=== PATIENT | female | born 1950 | race Caucasian/White ===

== ENCOUNTER → 2017-07-20 09:11 | Outpatient (CLI) | payer BC, SELFPAY ==
[2017-07-20 10:36] LABS: Alanine Aminotransferase 30 IU/L (9-52); Albumin 4.3 g/dL (3.5-5.0); Albumin Globulin Ratio 1.3 (1.0-2.8); Alkaline Phosphatase 48 U/L (38-126); Aspartate Aminotransferase 33 IU/L (14-36); Bilirubin Total 0.4 mg/dL (0.2-1.3); Calcium 9.5 mg/dL (8.4-10.2); Cholesterol 222 mg/dL (140-199); Estimated Glomerular Filt Rate > 60.0 mL/min (>60); Globulin 3.2 g/dL (1.7-4.1); Glucose 101 mg/dL (80-110); HDL Cholesterol 60 mg/dL (40-60); HEMOLYSIS < 15 (0-50); LDL Cholesterol Calculated 148 mg/dL (<100); Sodium 140 mmol/L (137-145); Total Protein 7.5 g/dL (6.3-8.2); Triglycerides 71 mg/dL (35-150)
[2017-07-20 11:30] LABS: Thyroid Stimulating Hormone 1.35 uIU/mL (0.47-4.68)
== END ==
PROVIDERS: PCP Physician Assistant; Visit Provider Physician Assistant
DX: E03.9 Hypothyroidism, unspecified (principal); E78.5 Hyperlipidemia, unspecified; I10 Essential (primary) hypertension
CPT/HCPCS: 36415; 80053; 80061; 84443

== ENCOUNTER → 2018-01-23 09:23 | Outpatient (CLI) | payer BC, SELFPAY ==
[2018-01-23 10:17] LABS: BUN Creatinine Ratio 22.5 (6-22); Blood Urea Nitrogen 18 mg/dL (7-17); Calcium 9.6 mg/dL (8.4-10.2); Carbon Dioxide 31 mmol/L (22-32); Chloride 100 mmol/L (98-107); Cholesterol 193 mg/dL (140-199); Estimated Glomerular Filt Rate > 60.0 mL/min (>60); Glucose 101 mg/dL (80-110); HDL Cholesterol 63 mg/dL (40-60); HEMOLYSIS < 15 (0-50); LDL Cholesterol Calculated 111 mg/dL (<100); Potassium 3.8 mmol/L (3.4-5.1); Sodium 143 mmol/L (137-145); Triglycerides 93 mg/dL (35-150)
== END ==
PROVIDERS: Family Provider Physician Assistant; PCP Physician Assistant; Visit Provider Physician Assistant
DX: E03.9 Hypothyroidism, unspecified (principal); E78.5 Hyperlipidemia, unspecified; I10 Essential (primary) hypertension
CPT/HCPCS: 36415; 80048; 80061

== ENCOUNTER → 2018-04-05 08:42 | Outpatient (CLI) | payer BC, SELFPAY ==
--- NOTE | 2018-04-05 | DI.MG.S_ITS ---
BILATERAL DIGITAL SCREENING MAMMOGRAM 3D/2D WITH CAD WITH AUGMENTATION: 04/05/2018 CLINICAL: Routine screening. Comparison is made to exams dated: 10/26/2015 mammogram, 10/14/2014 mammogram, and 05/10/2013 mammogram - [facility]. There are scattered fibroglandular elements in both breasts. Current study was also evaluated with a Computer Aided Detection (CAD) system. Bilateral subglandular silicone implants are present. There is 0.4 cm oval equal density asymmetry in the right breast central to the nipple posterior depth. No other significant masses, calcifications, or other findings are seen in either breast. IMPRESSION: INCOMPLETE: NEEDS ADDITIONAL IMAGING EVALUATION The 0.4 cm oval equal density asymmetry in the right breast is indeterminate. Additional views with possible ultrasound are recommended. This exam was interpreted at Station ID: [id number]. NOTE: For mammograms, a report in lay terms will be sent to the patient. Approximately 15% of breast malignancies will not be visualized mammographically. In the management of a palpable breast mass, a negative mammogram must not discourage biopsy of a clinically suspicious lesion. Electronically Signed By: Roque Cordero M.D. aty/:04/05/2018 09:57:58 letter sent: Additional Imaging Needed ACR BI-RADS Category 0: Incomplete 3340F
== END ==
PROVIDERS: Family Provider Physician Assistant; PCP Physician Assistant; Visit Provider Physician Assistant
DX: Z12.31 Encounter for screening mammogram for malignant neoplasm of breast (principal)
CPT/HCPCS: 77063; 77067

== ENCOUNTER → 2018-04-18 08:05 | Outpatient (CLI) | payer BC, SELFPAY ==
--- NOTE | 2018-04-18 08:06 | DI.MG.S_ITS ---
UNILATERAL RIGHT DIGITAL DIAGNOSTIC MAMMOGRAM 3D/2D WITH ADDITIONAL VIEWS: 04/18/2018 CLINICAL: Additional evaluation requested from prior study. Comparison is made to exams dated: 04/05/2018 mammogram - [facility], 10/26/2015 mammogram, and 10/14/2014 mammogram - [facility]. There are scattered fibroglandular elements in right breast. There is 0.3 cm oval low density focal asymmetry with an indistinct and circumscribed margin in the right breast at 12 o'clock middle depth. No other significant masses or calcifications are seen in the breast. IMPRESSION: INCOMPLETE: NEEDS ADDITIONAL IMAGING EVALUATION The 0.3 cm oval low density focal asymmetry in the right breast is indeterminate. An ultrasound is recommended. This exam was interpreted at Station ID: [id number]. NOTE: For mammograms, a report in lay terms will be sent to the patient. Approximately 15% of breast malignancies will not be visualized mammographically. In the management of a palpable breast mass, a negative mammogram must not discourage biopsy of a clinically suspicious lesion. Electronically Signed By: Samuel agarwal/mikki:04/18/2018 08:36:33 letter sent: Need Ultrasound ACR BI-RADS Category 0: Incomplete 3340F
--- NOTE | 2018-04-18 08:06 | DI.US.S_ITS ---
LIMITED ULTRASOUND OF RIGHT BREAST: 04/18/2018 CLINICAL: Patient returns today to evaluate a density in the right breast. Comparison is made to exams dated: 04/18/2018 mammogram, 04/05/2018 mammogram - [facility], 10/26/2015 mammogram, 10/14/2014 mammogram, 05/10/2013 mammogram, and 03/30/2012 mammogram - [facility]. Real-time ultrasound of the right breast 12-1 o'clock region was performed on the area of interest. At the 12:30 position 2 cm from the nipple, there are 2 adjacent round cysts. This includes a small hypoechoic cyst measuring 0.2 x 0.2 x 0.2 cm with internal echoes and posterior acoustic enhancement. There is an adjacent anechoic cyst measuring 0.3 x 0.3 x 0.3 cm. No internal vascularity is demonstrated within the cyst on Doppler interrogation. The findings likely correlate with mammography findings. IMPRESSION: PROBABLY BENIGN The small round cyst in the right breast is consistent with complicated cyst and is probably benign. A follow-up ultrasound in 6 months is recommended. A follow-up ultrasound in 6 months is recommended to demonstrate stability. This exam was interpreted at Station ID: [id number]. Electronically Signed By: Samuel agarwal/:04/20/2018 16:51:36 letter sent: Followup Recommended Ultrasound BI-RADS: 3 Probably benign
== END ==
PROVIDERS: Family Provider Physician Assistant; PCP Physician Assistant; Visit Provider Physician Assistant
DX: R92.8 Other abnormal and inconclusive findings on diagnostic imaging of breast (principal)
CPT/HCPCS: 76642; 77065; G0279

== ENCOUNTER → 2018-09-20 09:49 | Outpatient (CLI) | payer BC, SELFPAY ==
[2018-09-20 11:50] LABS: Alanine Aminotransferase 24 IU/L (9-52); Albumin 4.3 g/dL (3.5-5.0); Albumin Globulin Ratio 1.5 (1.0-2.8); Alkaline Phosphatase 48 U/L (38-126); Aspartate Aminotransferase 31 IU/L (14-36); BUN Creatinine Ratio 21.3 (6-22); Bilirubin Total 0.3 mg/dL (0.2-1.3); Blood Urea Nitrogen 17 mg/dL (7-17); Calcium 9.8 mg/dL (8.4-10.2); Carbon Dioxide 30 mmol/L (22-32); Chloride 101 mmol/L (98-107); Cholesterol 197 mg/dL (140-199); Estimated Glomerular Filt Rate > 60.0 mL/min (>60); Globulin 2.9 g/dL (1.7-4.1); Glucose 104 mg/dL (80-110); HDL Cholesterol 62 mg/dL (40-60); HEMOLYSIS < 15 (0-50); LDL Cholesterol Calculated 111 mg/dL (<100); Potassium 4.6 mmol/L (3.4-5.1); Sodium 137 mmol/L (137-145); Total Protein 7.2 g/dL (6.3-8.2); Triglycerides 121 mg/dL (35-150)
[2018-09-20 11:56] LABS: Creatinine Urine Random 81.3 mg/dL; Microalbumi Creatinin Ratio Ur 24.6 ug/mg CR (<30)
[2018-09-20 12:16] LABS: Thyroid Stimulating Hormone 0.88 uIU/mL (0.47-4.68)
== END ==
PROVIDERS: PCP Physician Assistant; Visit Provider Physician Assistant
DX: E03.9 Hypothyroidism, unspecified (principal); E78.5 Hyperlipidemia, unspecified; I10 Essential (primary) hypertension
CPT/HCPCS: 36415; 80053; 80061; 82043; 82570; 84443

== ENCOUNTER → 2018-10-04 09:00 | Outpatient (CLI) | payer BC, SELFPAY ==
--- NOTE | 2018-10-04 09:01 | DI.US.S_ITS ---
LIMITED ULTRASOUND OF RIGHT BREAST: 10/04/2018 CLINICAL: Patient returns for a 6 month follow up of the right breast. Comparison is made to exams dated: 04/18/2018 ultrasound, 04/18/2018 mammogram, 04/05/2018 mammogram - [facility], 10/26/2015 mammogram, and 10/14/2014 mammogram - [facility]. Color flow ultrasound of the right breast 12-1 o'clock region was performed. Gerardo scale images of the real-time examination were reviewed. At 12:30 position 2 cm from nipple, there are 2 adjacent round hypoechoic cysts with internal echos measuring 4 x 3 x 4 mm and 2 x 2 x 2 mm. These correlate with mammography and ultrasound findings. Color flow imaging demonstrates that there is no vascularity present. IMPRESSION: PROBABLY BENIGN Stable round cysts in the right breast are most consistent with a complicated cyst and are probably benign. A follow-up ultrasound in 6 months is recommended at the sametime as screen mammography. A follow-up ultrasound in 6 months is recommended to demonstrate long-term stability. This exam was interpreted at Station ID: [id number]. Electronically Signed By: Brannon Novoa M.D. slc/:10/04/2018 10:07:24 letter sent: Followup Recommended Ultrasound BI-RADS: 3 Probably benign
== END ==
PROVIDERS: PCP Physician Assistant; Visit Provider Physician Assistant
DX: R92.8 Other abnormal and inconclusive findings on diagnostic imaging of breast (principal); N60.01 Solitary cyst of right breast
CPT/HCPCS: 76642

== ENCOUNTER → 2019-04-16 09:08 | Outpatient (CLI) | payer BC, SELFPAY ==
[2019-04-16 10:19] LABS: BUN Creatinine Ratio 22.2 (6-22); Blood Urea Nitrogen 20 mg/dL (7-17); Calcium 9.4 mg/dL (8.4-10.2); Carbon Dioxide 29 mmol/L (22-32); Chloride 104 mmol/L (98-107); Estimated Glomerular Filt Rate > 60.0 mL/min (>60); Glucose 103 mg/dL (80-110); HEMOLYSIS < 15 (0-50); Potassium 3.9 mmol/L (3.4-5.1); Sodium 139 mmol/L (137-145)
== END ==
PROVIDERS: PCP Physician Assistant; Referring Provider Physician Assistant; Visit Provider Physician Assistant
DX: I10 Essential (primary) hypertension (principal)
CPT/HCPCS: 36415; 80048

== ENCOUNTER → 2019-05-03 09:11 | Outpatient (CLI) | payer BC, SELFPAY ==
--- NOTE | 2019-05-03 | DI.MG.S_ITS ---
BILATERAL DIGITAL DIAGNOSTIC MAMMOGRAM 3D/2D SHORT-TERM FOLLOW-UP WITH AUGMENTATION: 05/03/2019 CLINICAL: Right breast short term follow up. Due bilateral. Comparison is made to exams dated: 04/18/2018 mammogram, 04/05/2018 mammogram - [facility], 10/26/2015 mammogram, 10/14/2014 mammogram - [facility], and 10/04/2018 ultrasound - [facility]. There are scattered fibroglandular elements in both breasts. There is an oval mass in the right breast at 12 o'clock anterior depth. This is not significantly changed and correlates with ultrasound findings. No other significant masses, calcifications, or other findings are seen in either breast. The implants are intact and have a stable appearance. IMPRESSION: INCOMPLETE: NEEDS ADDITIONAL IMAGING EVALUATION The oval mass in the right breast is indeterminate. An ultrasound is recommended for further evaluation and is scheduled to immediately follow this study. This exam was interpreted at Station ID: [id number]. NOTE: For mammograms, a report in lay terms will be sent to the patient. Approximately 15% of breast malignancies will not be visualized mammographically. In the management of a palpable breast mass, a negative mammogram must not discourage biopsy of a clinically suspicious lesion. Electronically Signed By: Roque Cordero M.D. aty/:05/03/2019 11:46:35 ACR BI-RADS Category 0: Incomplete 3340F
--- NOTE | 2019-05-03 09:11 | DI.US.S_ITS ---
ULTRASOUND OF RIGHT BREAST: 05/03/2019 CLINICAL: 6 month follow-up. Comparison is made to exams dated: 05/03/2019 mammogram, 10/04/2018 ultrasound, 04/18/2018 ultrasound, 04/18/2018 mammogram, 04/05/2018 mammogram - [facility], and 10/26/2015 mammogram - [facility]. Color flow and real-time ultrasound of the right breast were performed. Gerardo scale images of the real-time examination were reviewed. There is a 0.5 cm x 0.4 cm area consisting two adjacent 2 mm to 3 mm oval cysts with smooth internal read in the right breast superior medial quadrant anterior depth 2 cm from the nipple. These 2 mm to 3 mm oval cysts are anechoic and hypoechoic with internal echoes. These abnormalities are not significantly changed and correlate with mammography and prior ultrasound findings. Color flow imaging demonstrates that there is no vascularity present. IMPRESSION: PROBABLY BENIGN The 0.5 cm x 0.4 cm area of two adjacent 2 mm to 3 mm oval cysts in the right breast are consistent with a complicated cyst and are probably benign. A follow-up right mammogram and an ultrasound in 6 months is recommended to demonstrate continued stability. This exam was interpreted at Station ID: [id number]. Electronically Signed By: Roque Cordero M.D. aty/:05/03/2019 11:49:58 letter sent: Followup Recommended Ultrasound BI-RADS: 3 Probably benign
== END ==
PROVIDERS: PCP Physician Assistant; Referring Provider Physician Assistant; Visit Provider Physician Assistant
DX: R92.8 Other abnormal and inconclusive findings on diagnostic imaging of breast (principal); N60.01 Solitary cyst of right breast
CPT/HCPCS: 76642; 77066; G0279

== ENCOUNTER → 2019-10-30 09:51 | Outpatient (CLI) | payer BC, SELFPAY ==
[2019-10-30 10:52] LABS: Add Manual Diff / Slide Review NO; Basophils Absolute Auto 100 /uL (0-100); Basophils Percent Auto 1.3 % (0-2); Eosinophils Absolute Auto 200 /uL (0-450); Eosinophils Percent Auto 4.5 % (2-4); Hematocrit 42.1 % (36-46); Hemoglobin 14.2 g/dL (12.0-16.0); Lymphocytes Absolute Auto 1300 /uL (1100-4500); Mean Corpuscular HGB Conc 33.7 % (30-36); Mean Corpuscular Hemoglobin 30.1 PG (26-34); Mean Corpuscular Volume 89.3 fL (80-100); Monocytes Absolute Auto 600 /uL (0-900); Monocytes Percent Auto 13.4 % (3-14); Neutrophils Absolute Auto 2600 /uL (1500-7000); Neutrophils Percent Auto 54.8 % (50-75); Platelet Count 243 X10^3/uL (150-400); Red Blood Cell Count 4.71 X10^6/uL (4.0-5.2); Red Cell Distribution Width 12.7 % (11.6-14.8); White Blood Cell Count 4.8 X10^3/uL (4.5-11.0)
[2019-10-30 11:23] LABS: Alanine Aminotransferase 36 IU/L (<35); Albumin 4.5 g/dL (3.5-5.0); Albumin Globulin Ratio 1.9 (1.0-2.8); Alkaline Phosphatase 50 U/L (38-126); Aspartate Aminotransferase 34 IU/L (14-36); Bilirubin Total 0.5 mg/dL (0.2-1.3); Blood Urea Nitrogen 17 mg/dL (7-17); Calcium 9.7 mg/dL (8.4-10.2); Carbon Dioxide 29 mmol/L (22-32); Chloride 103 mmol/L (98-107); Cholesterol 180 mg/dL (140-199); Estimated Glomerular Filt Rate > 60.0 mL/min (>60); Globulin 2.4 g/dL (1.7-4.1); Glucose 103 mg/dL (80-110); HDL Cholesterol 62 mg/dL (40-60); HEMOLYSIS < 15 (0-50); LDL Cholesterol Calculated 94 mg/dL (<100); Potassium 4.2 mmol/L (3.4-5.1); Sodium 138 mmol/L (137-145); Total Protein 6.9 g/dL (6.3-8.2); Triglycerides 120 mg/dL (35-150)
[2019-10-30 11:48] LABS: TSH w/ Reflex to FT4 0.52 uIU/mL (0.47-4.68)
== END ==
PROVIDERS: PCP Registered Nurse Diabetes Educator; Referring Provider Registered Nurse Diabetes Educator; Visit Provider Registered Nurse Diabetes Educator
DX: E03.9 Hypothyroidism, unspecified (principal); E78.2 Mixed hyperlipidemia; Z00.00 Encounter for general adult medical examination without abnormal findings
CPT/HCPCS: 36415; 80053; 80061; 84443; 85025

== ENCOUNTER → 2019-12-17 10:53 | Outpatient (CLI) | payer BC, SELFPAY ==
[2019-12-18 16:12] LABS: Fecal Immunochemical Test Negative (Negative)
== END ==
PROVIDERS: PCP Registered Nurse Diabetes Educator; Referring Provider Registered Nurse Diabetes Educator; Visit Provider Registered Nurse Diabetes Educator
DX: Z00.00 Encounter for general adult medical examination without abnormal findings (principal)
CPT/HCPCS: 82274

== ENCOUNTER → 2019-12-19 13:11 | Outpatient (CLI) | payer BC, SELFPAY ==
--- NOTE | 2019-12-19 | DI.MG.S_ITS ---
UNILATERAL RIGHT DIGITAL DIAGNOSTIC MAMMOGRAM 3D/2D WITH AUGMENTATION: 12/19/2019 CLINICAL: Patient returns for a 6 month follow up of the right breast. Comparison is made to exams dated: 05/03/2019 mammogram, 04/18/2018 mammogram, and 04/05/2018 mammogram - [facility]. There are scattered fibroglandular elements in right breast. There is an oval low density mass with an indistinct and circumscribed margin in the right breast at 12 o'clock middle depth. This is not significantly changed. No other significant masses or calcifications are seen in the breast. IMPRESSION: INCOMPLETE: NEEDS ADDITIONAL IMAGING EVALUATION The oval low density mass in the right breast is indeterminate. An ultrasound is recommended. This exam was interpreted at Station ID: [id number]. NOTE: For mammograms, a report in lay terms will be sent to the patient. Approximately 15% of breast malignancies will not be visualized mammographically. In the management of a palpable breast mass, a negative mammogram must not discourage biopsy of a clinically suspicious lesion. Electronically Signed By: Samuel agarwal/mikki:12/19/2019 14:54:55 ACR BI-RADS Category 0: Incomplete 3340F
--- NOTE | 2019-12-19 13:13 | DI.US.S_ITS ---
LIMITED ULTRASOUND OF RIGHT BREAST: 12/19/2019 CLINICAL: 6 month follow-up of cysts. Comparison is made to exams dated: 12/19/2019 mammogram, 05/03/2019 ultrasound, 05/03/2019 mammogram, 10/04/2018 ultrasound, 04/18/2018 ultrasound, and 04/18/2018 mammogram - [facility]. Color flow and real-time ultrasound of the right breast 12 o'clock region were performed on the areas of interest. There is a stable 0.4 cm x 0.2 cm x 0.2 cm cluster of oval cysts in the right breast at 12 o'clock anterior depth 2 cm from the nipple. This cluster of oval cysts is hypoechoic with a well-defined boundary and internal echoes. This correlates with mammography findings. Color flow imaging demonstrates that there is no vascularity present. IMPRESSION: PROBABLY BENIGN The stable 0.4 cm x 0.2 cm x 0.2 cm cluster of oval cysts in the right breast is probably benign. Follow-up mammogram and ultrasound in 6 months are recommended. A follow-up mammogram and an ultrasound in 6 months are recommended to demonstrate 2 year stability. Patient will be due for screening mammography of the contralateral breast at that time. This exam was interpreted at Station ID: [id number]. Electronically Signed By: Samuel agarwal/:12/19/2019 15:18:50 letter sent: Followup Recommended Ultrasound BI-RADS: 3 Probably benign
== END ==
PROVIDERS: PCP Registered Nurse Diabetes Educator; Referring Provider Registered Nurse Diabetes Educator; Visit Provider Registered Nurse Diabetes Educator
DX: R92.8 Other abnormal and inconclusive findings on diagnostic imaging of breast (principal); M85.851 Other specified disorders of bone density and structure, right thigh; Z78.0 Asymptomatic menopausal state; E03.9 Hypothyroidism, unspecified; E78.2 Mixed hyperlipidemia; Z82.62 Family history of osteoporosis
CPT/HCPCS: 76642; 77065; 77080; G0279

== ENCOUNTER → 2020-09-21 08:33 | Outpatient (CLI) | payer BC, SELFPAY ==
--- NOTE | 2020-09-21 08:36 | DI.MG.S_ITS ---
BILATERAL DIGITAL DIAGNOSTIC MAMMOGRAM 3D/2D WITH AUGMENTATION: 09/21/2020 CLINICAL: Short follow up, due bilateral. Comparison is made to exams dated: 12/19/2019 mammogram, 05/03/2019 mammogram, 04/18/2018 mammogram, 04/05/2018 mammogram - [facility], 10/26/2015 mammogram - [facility], and 12/19/2019 ultrasound - [facility]. The tissue of both breasts is predominantly fatty. There is an oval low density mass in the right breast at 12 o'clock middle depth. This is not significantly changed. No other significant masses, calcifications, or other findings are seen in either breast. Bilateral silicone implants are stable. IMPRESSION: INCOMPLETE: NEEDS ADDITIONAL IMAGING EVALUATION Stable oval low density mass in the right breast remains indeterminate. A targeted ultrasound is recommended and will immediately follow. This exam was interpreted at Station ID: [id number]. NOTE: For mammograms, a report in lay terms will be sent to the patient. Approximately 15% of breast malignancies will not be visualized mammographically. In the management of a palpable breast mass, a negative mammogram must not discourage biopsy of a clinically suspicious lesion. Electronically Signed By: Brannon Novoa M.D. slc/:09/21/2020 09:12:07 ACR BI-RADS Category 0: Incomplete 3340F
--- NOTE | 2020-09-21 08:36 | DI.US.S_ITS ---
LIMITED ULTRASOUND OF RIGHT BREAST: 09/21/2020 CLINICAL: 6 month follow-up of cysts. Comparison is made to exams dated: 09/21/2020 mammogram, 12/19/2019 ultrasound, 12/19/2019 mammogram, 05/03/2019 mammogram, 10/04/2018 ultrasound, and 04/18/2018 ultrasound [facility]. Color flow and real-time ultrasound of the right breast 12 o'clock region were performed. Gerardo scale images of the real-time examination were reviewed. There is a 0.5 cm x 0.4 cm x 0.2 cm cluster of oval cysts in the right breast at 12 o'clock middle depth 2 cm from the nipple. This cluster of oval cysts displays a well-defined boundary, internal echoes, and posterior acoustic enhancement. These abnormalities are not significantly changed. Color flow imaging demonstrates that there is no vascularity present. IMPRESSION: BENIGN There is no sonographic evidence of malignancy. The 0.5 cm cluster of oval cysts in the right breast is consistent with a cluster of cysts or complicated cyst and demonstrates long-term stability and is benign. A 1 year screening mammogram is recommended. Exam findings were conveyed to the patient. This exam was interpreted at Station ID: [id number]. Electronically Signed By: Brannon Novoa M.D. slc/:09/21/2020 10:29:45 letter sent: Normal Exam Ultrasound BI-RADS: 2 Benign
== END ==
PROVIDERS: PCP Registered Nurse Diabetes Educator; Referring Provider Registered Nurse Diabetes Educator; Visit Provider Registered Nurse Diabetes Educator
DX: N60.01 Solitary cyst of right breast (principal); N60.02 Solitary cyst of left breast; R92.8 Other abnormal and inconclusive findings on diagnostic imaging of breast; Z98.82 Breast implant status
CPT/HCPCS: 76642; 77066; G0279

== ENCOUNTER → 2020-09-28 06:58 | Outpatient (CLI) | payer BC, SELFPAY ==
[2020-09-28 08:09] LABS: Add Manual Diff / Slide Review NO; Basophils Absolute Auto 100 /uL (0-100); Basophils Percent Auto 1.1 % (0-2); Eosinophils Absolute Auto 400 /uL (0-450); Hematocrit 42.7 % (36-46); Hemoglobin 14.1 g/dL (12.0-16.0); Lymphocytes Absolute Auto 1800 /uL (1100-4500); Lymphocytes Percent Auto 29.4 % (25-40); Mean Corpuscular HGB Conc 33.1 % (30-36); Mean Corpuscular Hemoglobin 29.3 PG (26-34); Mean Corpuscular Volume 88.4 fL (80-100); Monocytes Absolute Auto 600 /uL (0-900); Monocytes Percent Auto 10.3 % (3-14); Neutrophils Absolute Auto 3200 /uL (1500-7000); Neutrophils Percent Auto 53.2 % (50-75); Platelet Count 241 X10^3/uL (150-400); Red Blood Cell Count 4.82 X10^6/uL (4.0-5.2); Red Cell Distribution Width 13.8 % (11.6-14.8); White Blood Cell Count 6.1 X10^3/uL (4.5-11.0)
[2020-09-28 08:36] LABS: Alanine Aminotransferase 31 IU/L (<35); Albumin 4.2 g/dL (3.5-5.0); Albumin Globulin Ratio 1.4 (1.0-2.8); Alkaline Phosphatase 48 U/L (38-126); Aspartate Aminotransferase 35 IU/L (14-36); Bilirubin Total 0.4 mg/dL (0.2-1.3); Blood Urea Nitrogen 23 mg/dL (7-17); Carbon Dioxide 28 mmol/L (22-32); Chloride 104 mmol/L (98-107); Estimated Glomerular Filt Rate 57.1 mL/min (>60); Glucose 107 mg/dL (80-110); HEMOLYSIS < 15 (0-50); Sodium 139 mmol/L (137-145); Total Protein 7.2 g/dL (6.3-8.2)
[2020-09-28 08:47] LABS: Free T4, Direct Thyroxine 1.07 ng/dL (0.78-2.19)
[2020-09-28 09:01] LABS: Thyroid Stimulating Hormone 0.591 uIU/mL (0.47-4.68)
== END ==
PROVIDERS: PCP Registered Nurse Diabetes Educator; Referring Provider Registered Nurse; Visit Provider Registered Nurse
DX: E03.9 Hypothyroidism, unspecified (principal); I10 Essential (primary) hypertension; R00.2 Palpitations
CPT/HCPCS: 36415; 80053; 84439; 84443; 85025

== ENCOUNTER 2020-10-09 21:10 | Emergency (ER) | payer BC, SELFPAY ==
[2020-10-09 21:16] VITALS: BP 196/78; PULSE 80; RESP 16; TEMP 36.6; O2SAT 100; BMI 31.4
--- NOTE | 2020-10-09 21:29 | ED_ITS ---
HPI - General Adult General Chief complaint: Extremity Injury, Upper Stated complaint: RIGHT HAND CAT SCRATCHED SWELLING Time Seen by Provider: 10/09/20 21:26 Source: patient Mode of arrival: Ambulatory Limitations: no limitations History of Present Illness HPI narrative: Patient is a 70-year-old female who is here for evaluation of swelling to the back of her right hand. She states earlier today she was screens her CT. They were 2 separate scratches. She stated that they only blood a very small amount and she did not think much of it. She did clean out. Then later on in the evening she put her hand down in order to left upper chair to push it back from the table when she had a sudden increase in the swelling in the back of her hand. She denies any discomfort. Related Data Home Medications Medication Instructions Recorded Confirmed ASPIRIN (Aspirin) 81 mg OR Q DAY #0 06/28/10 09/14/20 LifeVantage Protandim 1 tab PO .QDAY 04/04/18 09/14/20 Super B Complex 1 tab PO QAM 09/25/18 09/14/20 loratadine 10 mg tablet (Claritin) 10 mg PO DAILY PRN 09/25/18 09/14/20 vitamin E 400 unit capsule 400 unit PO DAILY 09/25/18 09/14/20 coenzyme Q10 200 mg capsule 200 mg PO DAILY 10/30/19 09/14/20 lifeadvantage protandim PO 10/30/19 09/14/20 macular protect EYE-BOTH 10/30/19 09/14/20 Xxugcrh-hhydkmgjk-xacwvss D2 PO DAILY 09/14/20 Previous Rx's Medication Instructions Recorded benzonatate 100 mg capsule 100 mg PO TID PRN #30 cap 08/08/17 hydrocortisone butyrate 0.1 % 1 applictn TOP BID #15 gram 04/04/18 topical cream alendronate 70 mg tablet 70 mg PO QWEEK #12 tab 11/22/19 fenofibrate 160 mg tablet See Rx Instructions .ROUTE 11/22/19 .COMPLEX #90 tab hydrochlorothiazide 25 mg tablet 25 mg PO QDAY #90 tab 11/22/19 levothyroxine 88 mcg tablet 88 mcg PO QDAY #90 tab 11/22/19 lisinopril 10 mg tablet 10 mg PO Q DAY #90 tab 11/22/19 simvastatin 40 mg tablet See Rx Instructions .ROUTE 11/22/19 .COMPLEX #90 tab amoxicillin 875 mg-potassium 1 tab PO BID 5 Days #10 tab 10/09/20 clavulanate 125 mg tablet (Augmentin) Allergies Allergy/AdvReac Type Severity Reaction Status Date / Time No Known Drug Allergies Allergy Verified 10/30/19 09:02 Review of Systems Musculoskeletal Musculoskeletal: Reports as per HPI Integumentary/Breasts Skin/Breast: Reports as per HPI Neurologic Neurologic: Reports system reviewed and no additional complaints, except as documented Hematologic/Lymphatic On Anticoagulants: No Patient History Medical History Diverticulosis of large intestine without hemorrhage (08/20/15) Essential hypertension Hyperlipidemia Hypothyroidism Osteopenia Social History Smoking Status: Never smoker second hand exposure: No alcohol intake: current (A vicente every 6 months or so.) substance use type: does not use Smoking Status: Never smoker alcohol intake frequency: 0-2 drinks per day Substance Use Type: does not use Exam Initial Vital Signs Initial Vital Signs: Vital Signs Temperature 98 F 10/09/20 21:16 Pulse Rate 80 10/09/20 21:16 Respiratory Rate 16 10/09/20 21:16 Blood Pressure 196/78 H 10/09/20 21:16 Pulse Oximetry 100 10/09/20 21:16 Const General: cooperative and healthy appearing [facility] Head: normal to inspection Resp Effort & Inspection: normal respiratory effort Cardio Pulses: radial pulses present on the right Skin Other: Patient with 2 small puncture wounds on the dorsum of the right hand. One at the base of the index finger in the other in between the index finger and the thumb. There is no active bleeding. Neuro Sensory Exam: no sensory deficits noted Extrem General: capillary refill normal and other (She does have a large swelling that encompasses the dorsum of the right daily) Course Vital Signs Vital signs: Vital Signs - 8 hr 10/09/20 21:16 10/09/20 22:35 Temperature 98 F Pulse Rate 80 75 Respiratory Rate 16 16 Blood Pressure 196/78 H 202/82 H Pulse Oximetry 100 100 Medical Decision Making MDM Narrative Medical decision making narrative: The wound does not appear to be infected. Low suspicion for retained foreign body. I suspect the swelling is just a large hematoma. She is not on anticoagulation. Compression was placed over the area and after an observation period here in the emergency department there was no additional swelling. Will give her antibiotics given the nature of the wound. She was given care instructions and return precautions. She expressed understanding and agreement. Discharge Plan Departure Patient Disposition: Home Clinical Impression: Cat scratch of hand, Contusion of hand Instructions: Animal Bites, DI for Contusion Activity Restrictions/Additional Instructions: I recommend that you leave the bandage that was placed here in the emergency department on for the next 24 hours. After that you can take it off. You can wash your hands like normal. Hold on to the antibiotic prescription that you were given and if you start to develop signs of infection start taking as directed. Return to the emergency department for any new or worsening symptoms Prescriptions: New amoxicillin-pot clavulanate [Augmentin] 875-125 mg tablet 1 tab PO BID 5 Days Qty: 10 RF: 0 No Action LifeVantage Protandim 1 tab PO .QDAY RF: 0 hydrocortisone butyrate 0.1 % cream 1 applictn TOP BID Qty: 15 RF: 3 ASPIRIN (Aspirin) 81 mg OR Q DAY Qty: 0 RF: 0 benzonatate 100 mg capsule 100 mg PO TID PRN (Reason: cough) Qty: 30 RF: 1 hydrochlorothiazide 25 mg tablet 25 mg PO QDAY Qty: 90 RF: 3 lisinopril 10 mg tablet 10 mg PO Q DAY Qty: 90 RF: 3 levothyroxine 88 mcg tablet 88 mcg PO QDAY Qty: 90 RF: 3 fenofibrate 160 mg tablet See Rx Instructions .ROUTE .COMPLEX Qty: 90 RF: 3 simvastatin 40 mg tablet See Rx Instructions .ROUTE .COMPLEX Qty: 90 RF: 3 alendronate 70 mg tablet 70 mg PO QWEEK Qty: 12 RF: 3 loratadine [Claritin] 10 mg tablet 10 mg PO DAILY PRNRF: 0 Super B Complex 1 tab PO QAM RF: 0 vitamin E 400 unit capsule 400 unit PO DAILY RF: 0 macular protect EYE-BOTH RF: 0 lifeadvantage protandim PO RF: 0 coenzyme Q10 200 mg capsule 200 mg PO DAILY RF: 0 Pavuqey-oicgmbulb-rkgzyoe D2 500 mg tablet PO DAILY RF: 0 Referrals: Greg Mobley ARNP [Primary Care Provider] -
[2020-10-09 22:35] VITALS: BP 202/82; PULSE 75; RESP 16; O2SAT 100
--- NOTE | 2020-10-10 00:15 | PC.NURSE ---
PT had left prescription in department. Got ahold of patient and she wanted script to called to [facility] pharmacy in [facility]. Called in as requested.
== END 2020-10-09 22:38 | disposition home or self-care (01) ==
PROVIDERS: Emergency Provider Emergency Medicine; PCP Registered Nurse Diabetes Educator
DX: S60.221A Contusion of right hand, initial encounter (principal); S60.511A Abrasion of right hand, initial encounter; W55.03XA Scratched by cat, initial encounter
CPT/HCPCS: 99281

== ENCOUNTER → 2021-01-25 08:11 | Outpatient (CLI) | payer BC, SELFPAY ==
[2021-01-25 09:34] LABS: BUN Creatinine Ratio 19.6 (6-22); Blood Urea Nitrogen 19 mg/dL (7-17); Calcium 9.9 mg/dL (8.4-10.2); Carbon Dioxide 30 mmol/L (22-32); Chloride 103 mmol/L (98-107); Cholesterol 194 mg/dL (140-199); Estimated Glomerular Filt Rate 56.5 mL/min (>60); Glucose 114 mg/dL (80-110); HDL Cholesterol 59 mg/dL (40-60); HEMOLYSIS < 15 (0-50); LDL Cholesterol Calculated 105 mg/dL (<100); Potassium 3.8 mmol/L (3.4-5.1); Sodium 139 mmol/L (137-145); Triglycerides 151 mg/dL (35-150)
== END ==
PROVIDERS: PCP Registered Nurse Diabetes Educator; Referring Provider Nurse Practitioner Acute Care; Visit Provider Nurse Practitioner Acute Care
DX: E78.5 Hyperlipidemia, unspecified (principal); E78.2 Mixed hyperlipidemia; R94.4 Abnormal results of kidney function studies
CPT/HCPCS: 36415; 80048; 80061

== ENCOUNTER → 2021-02-05 08:12 | Outpatient (CLI) | payer BC, SELFPAY ==
[2021-02-05 08:43] LABS: Hemoglobin A1C% w Est Avg Glu 5.6 % (4.0-6.0)
== END ==
PROVIDERS: PCP Registered Nurse Diabetes Educator; Referring Provider Internal Medicine Cardiovascular Disease; Visit Provider Internal Medicine Cardiovascular Disease
DX: R73.9 Hyperglycemia, unspecified (principal)
CPT/HCPCS: 36415; 83036

== ENCOUNTER → 2021-03-10 08:03 | Outpatient (CLI) | payer BC, SELFPAY ==
--- NOTE | 2021-03-10 08:04 | DI.US.S_ITS ---
PROCEDURE: US RENAL COMPLETE INDICATIONS: CHRONIC KIDNEY DISEASE TECHNIQUE: Real-time scanning was performed of the kidneys and bladder, with image documentation. COMPARISON: None. FINDINGS: Kidneys: Right kidney: 9 cm in length. 1.6 cm cortex. Hypoechoic lesion/s are seen in the lower pole, measuring up to 7.3 cm, which may reflect a septated cyst or cluster of cysts. Left kidney: 10.7 cm in length. 1.6 cm cortex. No hydronephrosis or nephrolithiasis. No suspicious solid mass lesions. Bladder: Pre-void bladder volume is a 50.2 mL. The patient is imaged ovoid. Pre-void images demonstrate no intraluminal masses or stones. On pre-void images, no ureteral jets are noted with color Doppler interrogation. (Of note, ureteral jets may not be detectable in up to 25% of cases due to insufficient differences in specific gravity between ureteral and bladder urine). Miscellaneous: No free pelvic fluid. Increased echogenicity of the liver, compatible hepatic steatosis. IMPRESSION: 1. Hypoechoic lesion/s in the right lower pole as detailed above, which may reflect a septated cyst or cluster of cysts. Consider CT or MRI imaging with renal protocol as clinically warranted. Dictated by: Castillo Ramírez M.D. on 03/10/2021 at 10:16 Approved by: Castillo Ramírez M.D. on 03/10/2021 at 10:27
== END ==
PROVIDERS: PCP Registered Nurse Diabetes Educator; Referring Provider Registered Nurse Diabetes Educator; Visit Provider Registered Nurse Diabetes Educator
DX: N18.30 Chronic kidney disease, stage 3 unspecified (principal); N28.9 Disorder of kidney and ureter, unspecified
CPT/HCPCS: 76770

== ENCOUNTER → 2021-03-24 09:22 | Outpatient (CLI) | payer BC, SELFPAY ==
[2021-03-24 10:07] LABS: Alanine Aminotransferase 21 IU/L (<35); Albumin 4.3 g/dL (3.5-5.0); Albumin Globulin Ratio 1.5 (1.0-2.8); Alkaline Phosphatase 36 U/L (38-126); Aspartate Aminotransferase 32 IU/L (14-36); BUN Creatinine Ratio 20.7 (6-22); Bilirubin Total 0.5 mg/dL (0.2-1.3); Blood Urea Nitrogen 19 mg/dL (7-17); Calcium 9.4 mg/dL (8.4-10.2); Carbon Dioxide 31 mmol/L (22-32); Chloride 103 mmol/L (98-107); Cholesterol 142 mg/dL (140-199); Estimated Glomerular Filt Rate > 60.0 mL/min (>60); Globulin 2.9 g/dL (1.7-4.1); Glucose 114 mg/dL (80-110); HDL Cholesterol 51 mg/dL (40-60); HEMOLYSIS 22 (0-50); LDL Cholesterol Calculated 74 mg/dL (<100); Potassium 3.9 mmol/L (3.4-5.1); Sodium 136 mmol/L (137-145); Total Protein 7.2 g/dL (6.3-8.2); Triglycerides 87 mg/dL (35-150)
[2021-03-24 10:21] LABS: Appearance Urine UA CLEAR; Bilirubin Urine UA NEGATIVE (NEGATIVE); Color Urine UA YELLOW; Glucose Urine UA NEGATIVE (Negative); Ketones Urine UA NEGATIVE (NEGATIVE); Leukocyte Esterase Urine UA 1+ (NEGATIVE); Nitrite Urine UA NEGATIVE (Negative); Occult Blood Urine UA NEGATIVE (Negative); Protein Urine UA NEGATIVE (Negative); Specific Gravity Urine UA 1.015 (1.000-1.035); Urobilinogen Urine UA 0.2 E.U./dL (0.2)
--- NOTE | 2021-03-24 10:23 | DI.CT.S_ITS ---
PROCEDURE: CT ABDOMEN WO/W CON INDICATIONS: renal cyst TECHNIQUE: Optional 5 mm thick noncontrast images acquired from the diaphragm to the iliac crests. After the administration of intravenous contrast, 5 mm thick images again acquired from the diaphragm to the iliac crests in the arterial and urographic phases. 5 mm thick coronal and sagittal reformats were then acquired. For radiation dose reduction, the following was used: automated exposure control, adjustment of mA and/or kV according to patient size. COMPARISON: None. FINDINGS: Image quality: Excellent. Lung bases: Lung bases are clear. Heart size is normal. Breast implants. Genitourinary: Kidneys are within normal limits in size. Renal enhancement is symmetric. There are several low-density nonenhancing right renal cysts. Right kidney lower pole minimally complicated cyst with suspected thin septation measures 6.1 cm, (4/31). At the superior pole of the right kidney there is a small cyst measuring 1.1 cm, (5/28) that measures 22 Hounsfield units. No definite enhancement. This likely represents a minimally complex cyst. There are a few cortical hypodensities in the left kidney which are too small to further characterize. No hydronephrosis. No kidney stones. Other solid organs: Liver is normal in size and enhancement. Small cyst in the right lobe of the liver. Gallbladder is unremarkable. Biliary system is non dilated. Pancreas enhances normally. Spleen is normal in size and enhancement. No adrenal nodules. Peritoneum and bowel: Unenhanced bowel loops are normal in wall thickness and caliber. No free fluid or air. Nodes and vessels: No retroperitoneal or mesenteric adenopathy by size criteria. Aorta and inferior vena cava are normal in caliber. Extensive calcified atherosclerotic plaque. Bones: No suspicious bony lesions. No vertebral body compression fractures. Miscellaneous: No ventral hernias. IMPRESSION: 1. Minimally complex right renal cysts x2. 1 with increased attenuation and the other with a thin septation. Bosniak category 2 F. -Recommend follow-up renal protocol MRI in 12 months. 2. No hydronephrosis. No kidney stones. Dictated by: Brannon Novoa M.D. on 03/24/2021 at 11:24 Approved by: Brannon Novoa M.D. on 03/24/2021 at 11:37
[2021-03-24 10:34] LABS: pH Urine UA 7.5 (4.5-8.0)
[2021-03-24 10:37] LABS: Creatinine Urine Random 62.3 mg/dL
[2021-03-24 10:41] LABS: Microalbumi Creatinin Ratio Ur 17.6 ug/mg CR (<30); Microalbumin Urine Random 1.1 mg/dL (0-1.6)
[2021-03-24 10:44] LABS: Bacteria Urine Occasional (0-1); Culture Indicated Urine Specimen Cultured; RBC Urine 0-1/HPF (0-5/HPF); Squamous Epithelial Cell Urine 1-5 /HPF (0-5/HPF); WBC Urine 1-5/HPF (0-5/HPF)
[2021-03-24 11:03] LABS: TSH w/ Reflex to FT4 1.03 uIU/mL (0.47-4.68)
== END ==
PROVIDERS: PCP Registered Nurse Diabetes Educator; Referring Provider Registered Nurse Diabetes Educator; Visit Provider Registered Nurse Diabetes Educator
DX: N28.1 Cyst of kidney, acquired (principal); Z01.812 Encounter for preprocedural laboratory examination; E78.2 Mixed hyperlipidemia; R94.4 Abnormal results of kidney function studies; E03.9 Hypothyroidism, unspecified; N18.30 Chronic kidney disease, stage 3 unspecified
CPT/HCPCS: 36415; 74170; 80053; 80061; 81001; 82043; 82570; 84443; 87086

== ENCOUNTER → 2021-05-12 10:19 | Outpatient (CLI) | payer BC, SELFPAY ==
[2021-05-14 16:10] LABS: Fecal Immunochemical Test Negative (Negative)
== END ==
PROVIDERS: PCP Registered Nurse Diabetes Educator; Referring Provider Registered Nurse Diabetes Educator; Visit Provider Registered Nurse Diabetes Educator
DX: Z12.11 Encounter for screening for malignant neoplasm of colon (principal)
CPT/HCPCS: 82274

== ENCOUNTER → 2021-07-09 09:21 | Outpatient (CLI) | payer BC, SELFPAY ==
[2021-07-09 10:14] LABS: Add Manual Diff / Slide Review NO; Basophils Absolute Auto 0 /uL (0-100); Basophils Percent Auto 0.7 % (0-2); Eosinophils Absolute Auto 400 /uL (0-450); Eosinophils Percent Auto 7.5 % (2-4); Hematocrit 39.1 % (36-46); Hemoglobin 13.3 g/dL (12.0-16.0); Lymphocytes Absolute Auto 1100 /uL (1100-4500); Mean Corpuscular Hemoglobin 29.3 PG (26-34); Mean Corpuscular Volume 86.2 fL (80-100); Monocytes Absolute Auto 500 /uL (0-900); Monocytes Percent Auto 11.1 % (3-14); Neutrophils Absolute Auto 2700 /uL (1500-7000); Neutrophils Percent Auto 57.7 % (50-75); Platelet Count 228 X10^3/uL (150-400); Red Blood Cell Count 4.53 X10^6/uL (4.0-5.2); Red Cell Distribution Width 13.2 % (11.6-14.8); White Blood Cell Count 4.8 X10^3/uL (4.5-11.0)
[2021-07-09 10:35] LABS: Erythrocyte Sedimentation Rate 11 MM/HR (0-20)
[2021-07-09 10:40] LABS: Alanine Aminotransferase 21 IU/L (<35); Albumin 4.3 g/dL (3.5-5.0); Albumin Globulin Ratio 1.7 (1.0-2.8); Alkaline Phosphatase 49 U/L (38-126); Aspartate Aminotransferase 29 IU/L (14-36); BUN Creatinine Ratio 22.5 (6-22); Bilirubin Total 0.4 mg/dL (0.2-1.3); Blood Urea Nitrogen 20 mg/dL (7-17); C-Reactive Protein Quant < 0.5 mg/dL (<1.0); Calcium 9.4 mg/dL (8.4-10.2); Carbon Dioxide 29 mmol/L (22-32); Chloride 105 mmol/L (98-107); Estimated Glomerular Filt Rate > 60 mL/min (>60); Globulin 2.6 g/dL (1.7-4.1); Glucose 115 mg/dL (80-110); HEMOLYSIS < 15 (0-50); Potassium 4.1 mmol/L (3.4-5.1); Sodium 138 mmol/L (137-145); Total Protein 6.9 g/dL (6.3-8.2)
[2021-07-13 07:36] LABS: Alder IgE 1.27 kU/L (Class II); Alternaria alternata IgE <0.10 kU/L (Class 0); Aspergillus fumigatus IgE <0.10 kU/L (Class 0); Box Elder IgE <0.10 kU/L (Class 0); Cladosporium herbarum IgE <0.10 kU/L (Class 0); Cockroach IgE <0.10 kU/L (Class 0); Cottonwood IgE <0.10 kU/L (Class 0); D farinae IgE <0.10 kU/L (Class 0); D pteronyssinus IgE <0.10 kU/L (Class 0); Dog Dander IgE <0.10 kU/L (Class 0); Elm Tree IgE <0.10 kU/L (Class 0); Immunoglobulin E 26 IU/mL (6-495); Mountain Cedar IgE <0.10 kU/L (Class 0); Mouse Urine Proteins IgE <0.10 kU/L (Class 0); Nettle IgE <0.10 kU/L (Class 0); Oak Tree IgE <0.10 kU/L (Class 0); Penicillium chrysogen IgE <0.10 kU/L (Class 0); Pigweed, Common IgE <0.10 kU/L (Class 0); Ragweed, Short <0.10 kU/L (Class 0); Sheep Sorrel IgE <0.10 kU/L (Class 0); Silver Birch IgE 1.18 kU/L (Class II); Timothy Grass IgE 1.16 kU/L (Class II); Walnut Allery IgE < 0.10 kU/L (Class 0); White ash IgE <0.10 kU/L (Class 0)
[2021-07-13 09:44] LABS: Cat Dander IgE <0.10
[2021-07-13 15:16] LABS: Almond IgE <0.10 kU/L (Class 0); Cashew Nut IgE <0.10 kU/L (Class 0); Codfish Allergy IgE < 0.10 kU/L (Class 0); Egg White IgE 0.28 kU/L (Class 0/I); Hazelnut IgE 0.51 kU/L (Class I); Milk IgE 0.47 kU/L (Class I); Peanut IgE 0.26 kU/L (Class 0/I); Salmon Allergy IgE < 0.10 kU/L (Class 0); Scallop Allergy IgE < 0.10 kU/L (Class 0); Sesame seed Allergy IgE < 0.10 kU/L (Class 0); Shrimp IgE <0.10 kU/L (Class 0); Soybean IgE <0.10 kU/L (Class 0); Tuna Allergy IgE < 0.10 kU/L (Class 0); Walnut IgE <0.10 kU/L (Class 0); Wheat Allergy IgE 0.13 kU/L (Class 0/I)
== END ==
PROVIDERS: PCP Registered Nurse Diabetes Educator; Referring Provider Registered Nurse Diabetes Educator; Visit Provider Registered Nurse Diabetes Educator
DX: L50.9 Urticaria, unspecified (principal); R22.0 Localized swelling, mass and lump, head
CPT/HCPCS: 36415; 80053; 82785; 85025; 85651; 86003; 86140

== ENCOUNTER → 2021-10-13 08:07 | Outpatient (CLI) | payer BC, SELFPAY ==
--- NOTE | 2021-10-13 | DI.MG.S_ITS ---
BILATERAL DIGITAL SCREENING MAMMOGRAM 3D/2D WITH CAD WITH AUGMENTATION: 10/13/2021 CLINICAL: Patient presents for routine screening. S/P bilateral augmentation. Comparison is made to exams dated: 09/21/2020 mammogram, 12/19/2019 mammogram, 05/03/2019 mammogram, 04/05/2018 mammogram - [facility], and 10/26/2015 mammogram - [facility]. The tissue of both breasts is predominantly fatty. Current study was also evaluated with a Computer Aided Detection (CAD) system. No significant masses, calcifications, or other findings are seen in either breast. There has been no significant interval change. IMPRESSION: NEGATIVE There is no mammographic evidence of malignancy. A 1 year screening mammogram is recommended. Based on the Tyrer Cuzick model (a risk assessment model) the patient's lifetime risk is 2.1% and her 10 year risk is 1.7%. According to the ACR, ACS, and NCCN guidelines, an annual breast MRI exam along with mammogram is recommended if the patient's lifetime risk is 20% or greater. This exam was interpreted at Station ID: [id number]. NOTE: For mammograms, a report in lay terms will be sent to the patient. Approximately 15% of breast malignancies will not be visualized mammographically. In the management of a palpable breast mass, a negative mammogram must not discourage biopsy of a clinically suspicious lesion. Electronically Signed By: Mitchell Tran M.D., jr/mikki:10/13/2021 14:36:03 letter sent: Normal Exam ACR BI-RADS Category 1: Negative 3341F
== END ==
PROVIDERS: PCP Registered Nurse Diabetes Educator; Referring Provider Registered Nurse Diabetes Educator; Visit Provider Registered Nurse Diabetes Educator
DX: Z12.31 Encounter for screening mammogram for malignant neoplasm of breast (principal); Z98.82 Breast implant status
CPT/HCPCS: 77063; 77067

== ENCOUNTER → 2021-12-15 11:09 | Outpatient (CLI) | payer BC, SELFPAY ==
[2021-12-15 14:44] LABS: BUN Creatinine Ratio 14.6 (6-22); Blood Urea Nitrogen 12 mg/dL (7-17); Calcium 9.1 mg/dL (8.4-10.2); Carbon Dioxide 26 mmol/L (22-32); Chloride 102 mmol/L (98-107); Estimated Glomerular Filt Rate > 60 mL/min (>60); Glucose 120 mg/dL (80-110); HEMOLYSIS < 15 (0-50); Potassium 4.2 mmol/L (3.4-5.1); Sodium 138 mmol/L (137-145)
== END ==
PROVIDERS: PCP Registered Nurse Diabetes Educator; Referring Provider Nurse Practitioner Acute Care; Visit Provider Nurse Practitioner Acute Care
DX: I10 Essential (primary) hypertension (principal)
CPT/HCPCS: 36415; 80048

== ENCOUNTER → 2021-12-27 10:32 | Outpatient (CLI) | payer BC, SELFPAY ==
--- NOTE | 2021-12-27 10:36 | DI.RAD.S_ITS ---
PROCEDURE: XR HIP W PEL IF DONE LT 2V INDICATIONS: eval L hip/low back pain with LLE paresthesia TECHNIQUE: AP pelvis with lateral view(s) of the left hip(s). COMPARISON: [facility], , HIP 2V RIGHT, 10/12/2012, 15:54. FINDINGS: Bones: No fractures or dislocations. There is mild left hip joint space narrowing. Pelvic ring appears intact. No suspicious bony lesions. Soft tissues: The visualized bowel gas pattern is normal. No suspicious soft tissue calcifications. IMPRESSION: Mild left hip osteoarthritis. Dictated by: Tonya Kay M.D. on 12/27/2021 at 14:46 Approved by: Tonya Kay M.D. on 12/27/2021 at 14:49
--- NOTE | 2021-12-27 10:36 | DI.RAD.S_ITS ---
PROCEDURE: XR LUMBAR SPINE MIN 4V INDICATIONS: eval L hip/low back pain with LLE paresthesia TECHNIQUE: 5 views of the lumbar spine were acquired, including bilateral oblique views. COMPARISON: [facility], CT, CT ABDOMEN WO/W CON, 03/24/2021, 10:39. FINDINGS: Bones: 5 nonrib-bearing vertebrae are present. There is normal bony alignment. Degenerative changes and chronic compression deformity at L1 is similar to the CT dated 03/24/21. No new vertebral body compression fractures. No suspicious bony lesions. Soft tissues: Overlying bowel gas pattern is normal. No suspicious soft tissue calcifications. Oblique images: No pars defects. IMPRESSION: Stable degenerative change. Dictated by: Tonya Kay M.D. on 12/27/2021 at 14:38 Approved by: Tonya Kay M.D. on 12/27/2021 at 14:45
[2021-12-27 11:58] LABS: Add Manual Diff / Slide Review NO; Basophils Absolute Auto 0 /uL (0-100); Basophils Percent Auto 0.1 % (0-2); Eosinophils Absolute Auto 100 /uL (0-450); Eosinophils Percent Auto 1.4 % (2-4); Hematocrit 37.9 % (36-46); Hemoglobin 12.9 g/dL (12.0-16.0); Lymphocytes Absolute Auto 900 /uL (1100-4500); Lymphocytes Percent Auto 11.9 % (25-40); Mean Corpuscular Hemoglobin 28.8 PG (26-34); Mean Corpuscular Volume 84.7 fL (80-100); Monocytes Absolute Auto 500 /uL (0-900); Monocytes Percent Auto 6.6 % (3-14); Neutrophils Absolute Auto 6300 /uL (1500-7000); Platelet Count 283 X10^3/uL (150-400); Red Blood Cell Count 4.47 X10^6/uL (4.0-5.2); White Blood Cell Count 7.8 X10^3/uL (4.5-11.0)
[2021-12-27 12:22] LABS: Erythrocyte Sedimentation Rate 28 MM/HR (0-20)
[2021-12-27 12:49] LABS: Alanine Aminotransferase 26 IU/L (<35); Albumin 4.2 g/dL (3.5-5.0); Albumin Globulin Ratio 1.6 (1.0-2.8); Alkaline Phosphatase 62 U/L (38-126); Aspartate Aminotransferase 28 IU/L (14-36); BUN Creatinine Ratio 21.5 (6-22); Bilirubin Total 0.5 mg/dL (0.2-1.3); Blood Urea Nitrogen 17 mg/dL (7-17); C-Reactive Protein Quant 1.2 mg/dL (<1.0); Calcium 9.4 mg/dL (8.4-10.2); Carbon Dioxide 25 mmol/L (22-32); Chloride 102 mmol/L (98-107); Cholesterol 139 mg/dL (140-199); Estimated Glomerular Filt Rate > 60 mL/min (>60); Globulin 2.6 g/dL (1.7-4.1); Glucose 123 mg/dL (80-110); HDL Cholesterol 40 mg/dL (40-60); HEMOLYSIS < 15 (0-50); LDL Cholesterol Calculated 64 mg/dL (<100); Potassium 4.8 mmol/L (3.4-5.1); Sodium 137 mmol/L (137-145); Total Protein 6.8 g/dL (6.3-8.2); Triglycerides 177 mg/dL (35-150)
[2021-12-27 13:06] LABS: TSH w/ Reflex to FT4 0.78 uIU/mL (0.47-4.68)
[2021-12-28 18:23] LABS: Deamidated Gliadin Ab IgA 2 units (0-19); Deamidated Gliadin Ab IgG 1 units (0-19); Immunoglobulin A,Qn 90 mg/dL (64-422); t-Transglutaminase IgA <2 U/mL (0-3)
== END ==
PROVIDERS: PCP Registered Nurse Diabetes Educator; Referring Provider Nurse Practitioner Acute Care; Visit Provider Nurse Practitioner Acute Care
DX: M47.816 Spondylosis without myelopathy or radiculopathy, lumbar region; M16.12 Unilateral primary osteoarthritis, left hip; M54.50 Low back pain, unspecified; M25.552 Pain in left hip; I12.9 Hypertensive chronic kidney disease with stage 1 through stage 4 chronic kidney disease, or unspecified chronic kidney disease; N18.31 Chronic kidney disease, stage 3a; R20.2 Paresthesia of skin; E03.9 Hypothyroidism, unspecified; E78.2 Mixed hyperlipidemia; L50.9 Urticaria, unspecified; R19.7 Diarrhea, unspecified; G89.29 Other chronic pain
CPT/HCPCS: 36415; 72110; 73502; 80053; 80061; 82784; 83516; 84443; 85025; 85651; 86140

== ENCOUNTER → 2021-12-31 09:49 | Outpatient (CLI) | payer BC, SELFPAY ==
[2021-12-31 11:32] LABS: Occult Blood 1 Positive (Negative); Occult Blood 2 Positive (Negative); Occult Blood 3 Positive (Negative)
== END ==
PROVIDERS: PCP Registered Nurse Diabetes Educator; Referring Provider Registered Nurse Diabetes Educator; Visit Provider Registered Nurse Diabetes Educator
DX: E03.9 Hypothyroidism, unspecified (principal); E78.2 Mixed hyperlipidemia; I10 Essential (primary) hypertension; L50.9 Urticaria, unspecified; N18.31 Chronic kidney disease, stage 3a; R19.7 Diarrhea, unspecified
CPT/HCPCS: 82270; 87045; 87177; 87899

== ENCOUNTER → 2022-01-14 | Outpatient (CLI) | payer BC, SELFPAY | PROVIDERS: PCP Registered Nurse Diabetes Educator; Referring Provider Registered Nurse Diabetes Educator; Visit Provider Registered Nurse Diabetes Educator | DX: Z13.820 Encounter for screening for osteoporosis; Z78.0 Asymptomatic menopausal state; M85.851 Other specified disorders of bone density and structure, right thigh | CPT/HCPCS: 77080 ==

== ENCOUNTER → 2022-03-28 09:03 | Outpatient (CLI) | payer BC, SELFPAY ==
--- NOTE | 2022-03-28 10:47 | DI.MRI.S_ITS ---
PROCEDURE: MR ABDOMEN WO/W CON INDICATIONS: Cyst of kidney, acquired TECHNIQUE: Coronal HASTE through abdomen and pelvis; axial 2D FLASH in- and [id number] (with and without fat saturation), and breath-hold T2 FSE from the hepatic dome to the bottom of the kidneys. Coronal HASTE MR urogram of kidneys and bladder. Dynamic coronal VIBE during IV gadolinium administration; postgadolinium axial VIBE or 2D FLASH with fat saturation from the hepatic dome through the kidneys. COMPARISON: [facility], CT, CT ABDOMEN WO/W CON, 03/24/2021, 10:39. FINDINGS: Image quality: Excellent. Genitourinary system: Kidneys are normal in size. No hydronephrosis. No solid renal mass or suspicious enhancement. Several cysts bilaterally. Majority of the cysts are T2 hyperintense. -Right kidney superior pole cyst measuring 1 cm, (6/26), similar in size. Intrinsic T1 hyperintense signal, T2 hypointense signal, and no enhancement. This is consistent with a proteinaceous/hemorrhagic cyst. Benign. -Right kidney inferior pole cyst measuring 5.9 cm, (14/42), previously 6.2 cm. T2 hyperintense signal and no enhancement. No septation is appreciated. Benign. Adjacent similar appearing benign cyst. Other solid organs: Liver: A few small T2 hyperintense cysts. Hepatic steatosis. Gallbladder: Not distended. Bile ducts: No dilatation. Pancreas: No pancreatic ductal dilatation. Spleen: No splenomegaly. Adrenal glands: No nodule. Nodes and vessels: No enlarged lymph nodes. No abdominal aortic aneurysm. Bowel and peritoneum: No dilated loops of bowel seen. No ascites. Lung bases: No free fluid. Bones and soft tissues: Breast implants. No focal lesion. Mild scoliosis. IMPRESSION: 1. No solid renal mass or suspicious enhancement. 2. Right kidney superior pole proteinaceous/hemorrhagic cyst measuring 1 cm is similar in size, benign. 3. Right kidney inferior pole cyst measuring 5.9 cm is slightly decreased in size with no suspicious enhancement, benign. Several simple appearing cysts. Dictated by: Brannon Novoa M.D. on 03/28/2022 at 12:37 Approved by: Brannon Novoa M.D. on 03/28/2022 at 12:49
== END ==
PROVIDERS: PCP Registered Nurse Diabetes Educator; Referring Provider Registered Nurse Diabetes Educator; Visit Provider Registered Nurse Diabetes Educator
DX: N28.1 Cyst of kidney, acquired (principal); N18.30 Chronic kidney disease, stage 3 unspecified; K76.0 Fatty (change of) liver, not elsewhere classified; K76.89 Other specified diseases of liver; M41.9 Scoliosis, unspecified
CPT/HCPCS: 74183; A9579

== ENCOUNTER → 2022-04-05 12:13 | Outpatient (CLI) | payer BC, SELFPAY ==
[2022-04-05 13:14] LABS: Hemoglobin A1C% w Est Avg Glu 6.5 % (4.0-6.0)
[2022-04-05 13:15] LABS: Erythrocyte Sedimentation Rate 21 MM/HR (0-20)
[2022-04-05 13:50] LABS: C-Reactive Protein Quant < 0.5 mg/dL (<1.0); Glucose 86 mg/dL (80-110)
== END ==
PROVIDERS: PCP Registered Nurse Diabetes Educator; Referring Provider Registered Nurse Diabetes Educator; Visit Provider Registered Nurse Diabetes Educator
DX: R73.01 Impaired fasting glucose (principal); R79.82 Elevated C-reactive protein (CRP)
CPT/HCPCS: 36415; 82947; 83036; 85651; 86140

== ENCOUNTER 2022-04-13 07:54 | Day surgery (SDC) | payer BC, SELFPAY ==
--- NOTE | 2022-04-13 | PATH_ITS ---
[facility] Accession Number: [id number] No. of containers..02 Tissue . 01 Material submitted: . PART A: colon - CECAL POLYP PART B: colon - RANDOM COLON BIOPSIES . 01 Diagnosis: A. Cecal Polyp: Tubular adenoma. . B. Random Colon, Biopsies: Colonic mucosa with no diagnostic abnormality. Negative for active, chronic, and microscopic colitis. Negative for dysplasia and malignancy. . MRV 04/19/2022 1244 Local . 01 Electronically signed: . Israel Tyler MD, PhD, Pathologist NPI- [id number] . 01 Gross description: . Part A: CECAL POLYP: Received in formalin are 2 fragment(s) of marquez, soft tissue measuring 0.3 x 0.2 x 0.1 cm to 0.3 x 0.1 x 0.1 cm submitted entirely in 1 cassette(s) Part B: RANDOM COLON BIOPSIES: Received in formalin are 4 fragment(s) of marquez, soft tissue measuring 0.5 x 0.2 x 0.1 cm to 0.3 x 0.2 x 0.1 cm submitted entirely in 1 cassette(s) /CPE 04/14/2022 0604 Local . 01 Pathologist provided ICD-10: D12.0, R19.4 . 01 CPT . 447128, [id number] Performed at: 01 [facility] [address] [place] [address], [place], [place] [id number] MD Samuel Strange MD Phone: [phone]
[2022-04-13] MEDS: LACTATED RINGERS 1,000 ML 100 ML IV (08:10)
[2022-04-13 08:18] VITALS: BP 140/77; PULSE 73; RESP 16; TEMP 36.4; O2SAT 97
--- NOTE | 2022-04-13 08:28 | PM.HP.1 ---
History of Present Illness History of Present Illness Date Patient Seen: 04/13/22 Chief complaint: Colonoscopy Narrative: Fecal occult blood positivity with history of loose stools rule out underlying colitis Patient History Medical History CKD (chronic kidney disease) stage 3, GFR 30-59 ml/min Diverticulosis of large intestine without hemorrhage (08/20/15) Essential hypertension Hyperlipidemia Hypothyroidism Mast cell activation syndrome Osteopenia Family & Social History Social History: household members spouse Tobacco & Substance use: Smoking Status Never smoker alcohol intake current alcohol intake frequency 0-2 drinks per day Substance Use Type does not use Meds Home Medications and Allergies Home Medications Medication Instructions Recorded Confirmed Type ASPIRIN (Aspirin) 81 mg OR Q DAY ##0 06/28/10 04/13/22 History Super B Complex 1 tab PO QAM 09/25/18 04/07/22 History vitamin E 268 mg (400 unit) capsule 400 unit PO DAILY 09/25/18 04/07/22 History coenzyme Q10 200 mg capsule 200 mg PO DAILY 10/30/19 04/07/22 History macular protect EYE-BOTH 10/30/19 04/07/22 History Sluuuox-zampmnari-qgakrwl D2 PO DAILY 09/14/20 04/07/22 History spironolactone 25 mg tablet 25 mg PO DAILY #90 tabs 12/20/21 04/07/22 Rx carvedilol 12.5 mg tablet 25 mg PO BID #180 tabs 12/21/21 04/13/22 Rx lisinopril 10 mg tablet 20 mg PO Q DAY #90 tabs 12/21/21 04/07/22 Rx levothyroxine 88 mcg tablet 88 mcg PO QDAY #90 tabs 01/12/22 04/13/22 Rx rosuvastatin 40 mg tablet 40 mg PO DAILY #90 tabs 01/12/22 04/07/22 Rx loratadine 10 mg tablet (Claritin) 10 mg PO DAILY PRN allergic 03/23/22 04/07/22 Rx symptoms #90 tabs montelukast 10 mg tablet 10 mg PO DAILY 04/07/22 04/07/22 History clobetasol 0.05 % topical ointment topical 04/13/22 History Allergies Allergy/AdvReac Type Severity Reaction Status Date / Time No Known Drug Allergies Allergy Verified 04/13/22 07:50 Exam Vital Signs (past 8 hours): - 04/13/22 08:18 Temperature 97.6 F Pulse Rate 73 Respiratory Rate 16 Blood Pressure 140/77 Pulse Oximetry 97 Oxygen Delivery Method Room Air Oxygen Delivery Method Room Air Narrative Exam Narrative: Oropharynx free of lesions Chest clear to auscultation percussion Cardiac exam reveals no S3 or murmur Assessment & Plan Assessment & Plan narrative: Hemoccult positivity with history of loose stools rule out underlying colitis rule out neoplasia. Risks, benefits, alternatives have been explained. Time Spent With Patient Critical Care time: I spent a total of [] minutes of critical care time on this patient's care today; this time is exclusive of procedural time.
--- NOTE | 2022-04-13 08:29 | P.OP.COLON_ITS ---
Operative Date/Time/Diagnoses Date of procedure: 04/13/22 Pre-op diagnosis: See indication and findings Procedure & Clinicians Study performed: Colonoscopy with biopsy Indications: Diarrhea and fecal occult blood positivity Surgeon: Dionne Wallace Procedure Notes Procedure in detail: After informed consent was obtained the patient was placed in left lateral decubitus position. The video colonoscope was introduced the rectum slowly advanced to the cecum. Ic valve was identified and intubated. On slow withdraw al mucosa was carefully examined. The scope was removed. The patient tolerated procedure well. Blood loss none Complications none Sedation propofol Findings 1. 7 mm polyp in the cecum Jumbo biopsied and removed completely 2. Few scattered diverticula throughout the colon 3. Normal terminal ileum 4. No evidence of colitis. Random biopsies taken. Patient should follow up with Dr. Andrade for further recommendations. Follow-up colonoscopy in 5 years
[2022-04-13 09:16] VITALS: BP 123/38; PULSE 68; RESP 26; TEMP 36.2; O2SAT 96
[2022-04-13 09:21] VITALS: BMI 33.4
[2022-04-13 09:22] VITALS: BP 117/66; PULSE 67; RESP 17; TEMP 36.2; O2SAT 95
[2022-04-13 09:26] VITALS: BP 165/47; PULSE 69; RESP 16; O2SAT 96
[2022-04-13 09:31] VITALS: BP 169/50; PULSE 65; RESP 14; TEMP 36.3; O2SAT 97
--- NOTE | 2022-04-13 09:54 | SUR.PHASEII ---
Patient reported 6/10 right abdominal pain. Up to bathroom, unable to pass flatus. Dr. Wallace notified. No new orders, patient may discharge per MD. Patient agreeable.
== END 2022-04-13 10:01 | disposition home or self-care (01) ==
PROVIDERS: PCP Registered Nurse Diabetes Educator; Referring Provider Internal Medicine Gastroenterology; Visit Provider Internal Medicine Gastroenterology
PROC: 0DJD8ZZ Inspection of Lower Intestinal Tract, Via Natural or Artificial Opening Endoscopic (ICD-10-PCS; CPT 45378; principal; 2022-04-13 09:00)
DX: R19.7 Diarrhea, unspecified (principal); R19.5 Other fecal abnormalities; K57.30 Diverticulosis of large intestine without perforation or abscess without bleeding; D12.0 Benign neoplasm of cecum
CPT/HCPCS: 45380; J2250; J2704; J3010

== ENCOUNTER → 2022-11-28 08:10 | Outpatient (CLI) | payer BC, SELFPAY ==
--- NOTE | 2022-11-28 | DI.MG.S_ITS ---
BILATERAL DIGITAL SCREENING MAMMOGRAM 3D/2D WITH CAD WITH AUGMENTATION: 11/28/2022 CLINICAL: Routine screening. Comparison is made to exams dated: 10/13/2021 mammogram, 09/21/2020 mammogram, 05/03/2019 mammogram, 12/19/2019 mammogram, 04/18/2018 mammogram, and 04/05/2018 mammogram - [facility]. Both breasts are almost entirely fatty (category a/<25% glandular tissue). Current study was also evaluated with a Computer Aided Detection (CAD) system. There are intact bilateral retropectoral silicone implants. No significant masses, calcifications, or other findings are seen in either breast. IMPRESSION: BENIGN There is no mammographic evidence of malignancy. A 1 year screening mammogram is recommended. Based on the Tyrer Cuzick model (a risk assessment model) the patient's lifetime risk is 2.0% and her 10 year risk is 1.8%. According to the ACR, ACS, and NCCN guidelines, an annual breast MRI exam along with mammogram is recommended if the patient's lifetime risk is 20% or greater. This exam was interpreted at Station ID: [id number]. NOTE: For mammograms, a report in lay terms will be sent to the patient. Approximately 15% of breast malignancies will not be visualized mammographically. In the management of a palpable breast mass, a negative mammogram must not discourage biopsy of a clinically suspicious lesion. Electronically Signed By: Sade Woodall M.D. esb/:11/28/2022 18:29:15 letter sent: Normal Exam ACR BI-RADS Category 2: Benign Finding(s) 3342F
== END ==
PROVIDERS: PCP Registered Nurse Diabetes Educator; Referring Provider Registered Nurse Diabetes Educator; Visit Provider Registered Nurse Diabetes Educator
DX: Z12.31 Encounter for screening mammogram for malignant neoplasm of breast (principal)
CPT/HCPCS: 77063; 77067

== ENCOUNTER → 2023-03-01 10:21 | Outpatient (CLI) | payer BC, SELFPAY ==
[2023-03-01 11:42] LABS: Add Manual Diff / Slide Review NO; Basophils Absolute Auto 100 /uL (0-100); Basophils Percent Auto 1.1 % (0-2); Eosinophils Absolute Auto 300 /uL (0-450); Hematocrit 37.8 % (36-46); Lymphocytes Absolute Auto 1200 /uL (1100-4500); Lymphocytes Percent Auto 21.7 % (25-40); Mean Corpuscular HGB Conc 34.3 % (30-36); Mean Corpuscular Hemoglobin 30.9 PG (26-34); Monocytes Absolute Auto 600 /uL (0-900); Neutrophils Absolute Auto 3400 /uL (1500-7000); Neutrophils Percent Auto 61.2 % (50-75); Platelet Count 229 X10^3/uL (150-400); Red Cell Distribution Width 12.9 % (11.6-14.8); White Blood Cell Count 5.5 X10^3/uL (4.5-11.0)
[2023-03-01 11:56] LABS: Hemoglobin A1C% w Est Avg Glu 5.5 % (4.0-6.0)
[2023-03-01 12:15] LABS: HEMOLYSIS < 15 (0-50); Potassium 4.5 mmol/L (3.4-5.1)
[2023-03-01 12:16] LABS: Alanine Aminotransferase 28 IU/L (<35); Albumin 4.1 g/dL (3.5-5.0); Albumin Globulin Ratio 1.5 (1.0-2.8); Alkaline Phosphatase 63 U/L (38-126); Aspartate Aminotransferase 27 IU/L (14-36); BUN Creatinine Ratio 26.7 (6-22); Bilirubin Total 0.7 mg/dL (0.2-1.3); Blood Urea Nitrogen 23 mg/dL (7-17); Calcium 9.7 mg/dL (8.4-10.2); Carbon Dioxide 27 mmol/L (22-32); Chloride 103 mmol/L (98-107); Cholesterol 138 mg/dL (140-199); Estimated Glomerular Filt Rate > 60 mL/min (>60); Globulin 2.7 g/dL (1.7-4.1); Glucose 93 mg/dL (80-110); HDL Cholesterol 42 mg/dL (40-60); LDL Cholesterol Calculated 72 mg/dL (<100); Sodium 136 mmol/L (137-145); Total Protein 6.8 g/dL (6.3-8.2); Triglycerides 120 mg/dL (35-150)
[2023-03-01 12:36] LABS: TSH w/ Reflex to FT4 0.02 uIU/mL (0.47-4.68)
[2023-03-01 14:39] LABS: Free T4, Direct Thyroxine 1.44 ng/dL (0.78-2.19)
== END ==
PROVIDERS: PCP Registered Nurse Diabetes Educator; Referring Provider Internal Medicine Cardiovascular Disease; Visit Provider Internal Medicine Cardiovascular Disease
DX: Z13.1 Encounter for screening for diabetes mellitus (principal); I10 Essential (primary) hypertension; E78.5 Hyperlipidemia, unspecified; R00.2 Palpitations
CPT/HCPCS: 36415; 80053; 80061; 83036; 83735; 84439; 84443; 85025

== ENCOUNTER → 2023-05-15 13:03 | Outpatient (CLI) | payer BC, SELFPAY ==
[2023-05-15 15:15] LABS: TSH w/ Reflex to FT4 < 0.02 uIU/mL (0.47-4.68)
[2023-05-15 15:43] LABS: Free T4, Direct Thyroxine 1.33 ng/dL (0.78-2.19)
== END ==
LOC: LAB 13:04
PROVIDERS: PCP Registered Nurse Diabetes Educator; Referring Provider Registered Nurse Diabetes Educator; Visit Provider Registered Nurse Diabetes Educator
DX: E03.9 Hypothyroidism, unspecified (principal)
CPT/HCPCS: 36415; 84439; 84443

== ENCOUNTER → 2023-07-17 08:08 | Outpatient (CLI) | payer BC, SELFPAY ==
[2023-07-17 09:57] LABS: TSH w/ Reflex to FT4 0.25 uIU/mL (0.47-4.68)
[2023-07-17 10:24] LABS: Free T4, Direct Thyroxine 0.91 ng/dL (0.78-2.19)
== END ==
PROVIDERS: PCP Registered Nurse Diabetes Educator; Referring Provider Registered Nurse Diabetes Educator; Visit Provider Registered Nurse Diabetes Educator
DX: E03.9 Hypothyroidism, unspecified (principal)
CPT/HCPCS: 36415; 84439; 84443

== ENCOUNTER → 2023-09-18 11:35 | Outpatient (CLI) | payer BC, SELFPAY ==
[2023-09-18 15:03] LABS: TSH w/ Reflex to FT4 0.07 uIU/mL (0.47-4.68)
[2023-09-18 21:22] LABS: Free T4, Direct Thyroxine 0.92 ng/dL (0.78-2.19)
== END ==
PROVIDERS: PCP Registered Nurse Diabetes Educator; Referring Provider Registered Nurse Diabetes Educator; Visit Provider Registered Nurse Diabetes Educator
DX: E03.9 Hypothyroidism, unspecified (principal)
CPT/HCPCS: 36415; 84439; 84443

== ENCOUNTER → 2023-11-01 10:13 | Outpatient (CLI) | payer BC, SELFPAY ==
[2023-11-01 11:40] LABS: TSH w/ Reflex to FT4 4.88 uIU/mL (0.47-4.68)
[2023-11-01 12:25] LABS: Free T4, Direct Thyroxine 0.16 ng/dL (0.78-2.19)
== END ==
PROVIDERS: PCP Registered Nurse Diabetes Educator; Referring Provider Registered Nurse Diabetes Educator; Visit Provider Registered Nurse Diabetes Educator
DX: E03.9 Hypothyroidism, unspecified (principal)
CPT/HCPCS: 36415; 84439; 84443

== ENCOUNTER → 2023-12-15 09:47 | Outpatient (CLI) | payer BC, SELFPAY ==
[2023-12-15 12:12] LABS: TSH w/ Reflex to FT4 6.04 uIU/mL (0.47-4.68)
[2023-12-15 20:22] LABS: Free T4, Direct Thyroxine 0.61 ng/dL (0.78-2.19)
== END ==
PROVIDERS: PCP Registered Nurse Diabetes Educator; Referring Provider Registered Nurse Diabetes Educator; Visit Provider Registered Nurse Diabetes Educator
DX: E03.9 Hypothyroidism, unspecified (principal)
CPT/HCPCS: 36415; 84439; 84443

== ENCOUNTER → 2024-01-05 11:32 | Outpatient (CLI) | payer BC, SELFPAY ==
--- NOTE | 2024-01-05 | DI.MG.S_ITS ---
BILATERAL DIGITAL SCREENING MAMMOGRAM 3D/2D WITH CAD WITH AUGMENTATION: 01/05/2024 Comparison is made to exams dated: 11/28/2022 mammogram, 10/13/2021 mammogram, and 09/21/2020 mammogram - [facility]. The breasts are almost entirely fatty (category a/<25% glandular tissue). Current study was also evaluated with a Computer Aided Detection (CAD) system. Bilateral breast implants are intact. No significant masses, calcifications, or other findings are seen in either breast. There has been no significant interval change. IMPRESSION: NEGATIVE There is no mammographic evidence of malignancy. A 1 year screening mammogram is recommended. Based on the Tyrer Cuzick model (a risk assessment model) the patient's lifetime risk is 1.8% and her 10 year risk is 1.8%. According to the ACR, ACS, and NCCN guidelines, an annual breast MRI exam along with mammogram is recommended if the patient's lifetime risk is 20% or greater. This exam was interpreted at Station ID: [id number]. NOTE: For mammograms, a report in lay terms will be sent to the patient. Approximately 15% of breast malignancies will not be visualized mammographically. In the management of a palpable breast mass, a negative mammogram must not discourage biopsy of a clinically suspicious lesion. Electronically Signed By: Roque selby/mikki:01/08/2024 07:26:06 letter sent: Normal Exam ACR BI-RADS Category 1: Negative
--- NOTE | 2024-01-05 11:33 | DI.RAD.S_ITS ---
PROCEDURE: XR DEXA AXIAL SKELETON INDICATIONS: osteopenia COMPARISON: [facility], CR, XR DEXA AXIAL SKELETON, 01/14/2022, 16:25. [facility], CR, XR DEXA AXIAL SKELETON, 12/19/2019, 13:42. FINDINGS: Lumbar Spine: Bone mineral density 1.07 g/cm2, T score -0.1, previously -0.2. Left Hip: Bone mineral density 0.907 g/cm2, T score -0.3, previously -0.3. Left Femoral Neck: Bone mineral density 0.714 g/cm2, T score -1.2, previously - 0.9. Right Hip: Bone mineral density 0.909 g/cm2, T score -0.3, previously -0.5. Right Femoral Neck: Bone mineral density 0.704 g/cm2, T score -1.3, previously -1.1. Fracture Risk Calculation (when applicable): 10-year fracture risk of a major osteoporotic fracture 10 percent and of a hip fracture 1.8 percent. (T score greater or equal to -1.0 to: NORMAL) (T score from -1.1 to -2.4: OSTEOPENIA) (T score less than or equal to -2.5: OSTEOPOROSIS) IMPRESSION: 1. Normal bone density of the lumbar spine. 2. Normal bone density of the left left hip, although the femoral neck is osteopenic. 3. Normal bone density of the right hip, although the femoral neck is osteopenic. Follow-up guidelines as follows: Osteoporosis: Consider a repeat DEXA and Vertebral Fracture Assessment (VFA) exam in 2 years or sooner if medically necessary, to reassess this patient's status. Osteopenia: Consider a repeat DEXA in 2-3 years to reassess this patient's status, or if there is a new clinical indication. Normal: Consider a repeat DEXA in 5 years or sooner, or if there is a new clinical indication. All treatment decisions require clinical judgment and consideration of individual patient factors, including patient preferences, comorbidities, previous drug use, risk factors not captured in the FRAX model (e.g., frailty, falls, vitamin D deficiency, increased bone turnover, interval significant decline in bone density ) and possible under- or over-estimation of fracture risk by FRAX. In addition, the NOF Guide recommends that FDA-approved medical therapies be considered in postmenopausal women and men age >= 50 years with a: * Hip or vertebral (clinical or morphometric) fracture * T-score of <=-2.5 at the spine or hip * Ten-year fracture probability by FRAX of >= 3% for hip fracture or >=20% for major osteoporotic fracture. People with diagnosed cases of osteoporosis or at high risk for fracture should have regular bone mineral density tests. For patients eligible for Medicare, routine testing is allowed once every 2 years. The testing frequency can be increased to one year for patients who have rapidly progressing disease, those who are receiving or discontinuing medical therapy to restore bone mass, or have additional risk factors. Dictated by: Theo Yuen M.D. on 01/05/2024 at 14:27 Approved by: Theo Yuen M.D. on 01/05/2024 at 15:04
== END ==
PROVIDERS: PCP Registered Nurse Diabetes Educator; Referring Provider Registered Nurse Diabetes Educator; Visit Provider Registered Nurse Diabetes Educator
DX: Z12.31 Encounter for screening mammogram for malignant neoplasm of breast (principal); R92.313 Mammographic fatty tissue density, bilateral breasts; M85.89 Other specified disorders of bone density and structure, multiple sites
CPT/HCPCS: 77063; 77067; 77080

== ENCOUNTER → 2024-05-01 11:12 | Outpatient (CLI) | payer BC, SELFPAY ==
[2024-05-01 11:58] LABS: Add Manual Diff / Slide Review NO; Basophils Absolute Auto 100 /uL (0-100); Basophils Percent Auto 1.5 % (0-2); Eosinophils Absolute Auto 400 /uL (0-450); Eosinophils Percent Auto 6.6 % (2-4); Hematocrit 43.9 % (36-46); Hemoglobin 14.7 g/dL (12.0-16.0); Lymphocytes Absolute Auto 1100 /uL (1100-4500); Lymphocytes Percent Auto 20.8 % (25-40); Mean Corpuscular HGB Conc 33.4 % (30-36); Mean Corpuscular Hemoglobin 29.4 PG (26-34); Monocytes Absolute Auto 600 /uL (0-900); Monocytes Percent Auto 10.3 % (3-14); Neutrophils Absolute Auto 3300 /uL (1500-7000); Neutrophils Percent Auto 60.8 % (50-75); Platelet Count 221 X10^3/uL (150-400); Red Blood Cell Count 4.99 X10^6/uL (4.0-5.2); Red Cell Distribution Width 13.4 % (11.6-14.8); White Blood Cell Count 5.4 X10^3/uL (4.5-11.0)
[2024-05-01 12:19] LABS: Alanine Aminotransferase 50 IU/L (<35); Albumin 4.5 g/dL (3.5-5.0); Albumin Globulin Ratio 1.5 (1.0-2.8); Alkaline Phosphatase 90 U/L (38-126); Aspartate Aminotransferase 44 IU/L (14-36); BUN Creatinine Ratio 20.8 (6-22); Bilirubin Total 0.6 mg/dL (0.2-1.3); Blood Urea Nitrogen 20 mg/dL (7-17); Calcium 9.6 mg/dL (8.4-10.2); Carbon Dioxide 24 mmol/L (22-32); Chloride 103 mmol/L (98-107); Cholesterol 170 mg/dL (140-199); Estimated Glomerular Filt Rate > 60 mL/min (>60); Glucose 135 mg/dL (80-110); HDL Cholesterol 40 mg/dL (40-60); HEMOLYSIS < 15 (0-50); LDL Cholesterol Calculated 87 mg/dL (<100); Potassium 4.3 mmol/L (3.4-5.1); Sodium 138 mmol/L (137-145); Total Protein 7.5 g/dL (6.3-8.2); Triglycerides 214 mg/dL (35-150)
[2024-05-01 12:50] LABS: TSH w/ Reflex to FT4 3.75 uIU/mL (0.47-4.68)
== END ==
PROVIDERS: PCP Registered Nurse Diabetes Educator; Referring Provider Registered Nurse Diabetes Educator; Visit Provider Registered Nurse Diabetes Educator
DX: E78.2 Mixed hyperlipidemia (principal); E03.9 Hypothyroidism, unspecified
CPT/HCPCS: 36415; 80053; 80061; 84443; 85025

== ENCOUNTER → 2024-05-03 10:53 | Outpatient (CLI) | payer BC, SELFPAY ==
[2024-05-03 12:34] LABS: Glucose 128 mg/dL (80-110)
== END ==
PROVIDERS: PCP Registered Nurse Diabetes Educator; Referring Provider Registered Nurse Diabetes Educator; Visit Provider Registered Nurse Diabetes Educator
DX: R73.9 Hyperglycemia, unspecified (principal)
CPT/HCPCS: 36415; 82947; 83036

== ENCOUNTER → 2024-07-08 08:33 | Outpatient (CLI) | payer BC, SELFPAY ==
[2024-07-08 09:24] LABS: Alanine Aminotransferase 34 IU/L (<35); Albumin 4.3 g/dL (3.5-5.0); Albumin Globulin Ratio 1.9 (1.0-2.8); Alkaline Phosphatase 71 U/L (38-126); Aspartate Aminotransferase 30 IU/L (14-36); Bilirubin Total 0.6 mg/dL (0.2-1.3); Bilirubin Unconjugated 0.4 mg/dL (0.0-1.1); Globulin 2.3 g/dL (1.7-4.1); Glucose 129 mg/dL (70-99); HEMOLYSIS < 15 (0-50); Total Protein 6.6 g/dL (6.3-8.2)
== END ==
PROVIDERS: PCP Registered Nurse Diabetes Educator; Referring Provider Registered Nurse Diabetes Educator; Visit Provider Registered Nurse Diabetes Educator
DX: R74.8 Abnormal levels of other serum enzymes (principal); R73.9 Hyperglycemia, unspecified
CPT/HCPCS: 36415; 80076; 82947